=== PATIENT | female | born 1980 | race Caucasian/White ===

== ENCOUNTER 2018-01-19 20:58 | Emergency (ER) | payer MEDICARE, OTHER ==
[~2018-01-19] VITALS: Ht 170.2 cm; Wt 86.8 kg
[~2018-01-19 20:58] MED LIST: CEPH500C5 PO; HYDR-565 PO; HYDR-569 PO; ONDA4TAB59 PO; PHEN-873 PO
[2018-01-19] MEDS ORDERED: CEPH500C5 PO (22:36)
[2018-01-19 23:18] VITALS: BP 124/73
== END 2018-01-19 23:20 | disposition home or self-care (01) ==
LOC: ER 20:59
DX: S70.362A Insect bite (nonvenomous), left thigh, initial encounter (principal); E05.90 Thyrotoxicosis, unspecified without thyrotoxic crisis or storm; F12.10 Cannabis abuse, uncomplicated; F15.10 Other stimulant abuse, uncomplicated; F14.10 Cocaine abuse, uncomplicated; F11.10 Opioid abuse, uncomplicated; W57.XXXA Bitten or stung by nonvenomous insect and other nonvenomous arthropods, initial encounter; Y93.89 Activity, other specified; Y92.89 Other specified places as the place of occurrence of the external cause; Y99.9 Unspecified external cause status
CPT/HCPCS: 99283

== ENCOUNTER 2018-05-29 11:41 | Emergency (ER) | payer MEDICARE, OTHER ==
[~2018-05-29] VITALS: Ht 170.2 cm; Wt 86.0 kg
[2018-05-29 11:47] VITALS: BP 118/78
[2018-05-29] MEDS ORDERED: CEPH-571 PO (11:56)
== END 2018-05-29 12:15 | disposition home or self-care (01) ==
LOC: ER 11:41
DX: L03.116 Cellulitis of left lower limb (principal); E05.90 Thyrotoxicosis, unspecified without thyrotoxic crisis or storm; F12.90 Cannabis use, unspecified, uncomplicated; F15.90 Other stimulant use, unspecified, uncomplicated; F14.90 Cocaine use, unspecified, uncomplicated; F11.90 Opioid use, unspecified, uncomplicated; Z79.899 Other long term (current) drug therapy
CPT/HCPCS: 99284

== ENCOUNTER 2019-09-19 08:48 | Emergency (ER) | payer MEDICARE ==
[~2019-09-19] VITALS: Ht 170.2 cm; Wt 90.0 kg
[~2019-09-19 08:48] MED LIST changes: +CEPH-571 PO; -CEPH500C5 PO; +HYDR-4353 PO; +HYDR-4383 PO; -HYDR-565 PO; -HYDR-569 PO; +PHEN-786 PO; -PHEN-873 PO
[2019-09-19 09:05] VITALS: BP 128/85
[2019-09-19] MEDS ORDERED: ACET-3068 PO (10:01)
[2019-09-19] MEDS ORDERED: CLIN-90 PO (10:01)
[2019-09-19] MEDS ORDERED: clindamycin 150mg capsule PO ONE (10:20)
== END 2019-09-19 10:31 | disposition home or self-care (01) ==
LOC: ER 08:49
DX: K04.7 Periapical abscess without sinus (principal); G89.29 Other chronic pain; F12.90 Cannabis use, unspecified, uncomplicated; F15.90 Other stimulant use, unspecified, uncomplicated; F14.90 Cocaine use, unspecified, uncomplicated; F11.90 Opioid use, unspecified, uncomplicated; E05.90 Thyrotoxicosis, unspecified without thyrotoxic crisis or storm; F17.200 Nicotine dependence, unspecified, uncomplicated
CPT/HCPCS: 99283

== ENCOUNTER 2019-09-23 17:04 | Emergency (ER) | payer MEDICARE, MEDICAID ==
[~2019-09-23] VITALS: Ht 170.2 cm; Wt 85.0 kg
[~2019-09-23 17:04] MED LIST changes: +CLIN-90 PO
[2019-09-23 17:20] VITALS: BP 118/86
== END 2019-09-23 17:43 | disposition home or self-care (01) ==
LOC: ER 17:04
DX: K08.89 Other specified disorders of teeth and supporting structures (principal); E03.9 Hypothyroidism, unspecified; F41.9 Anxiety disorder, unspecified; F12.90 Cannabis use, unspecified, uncomplicated; F15.90 Other stimulant use, unspecified, uncomplicated; F14.90 Cocaine use, unspecified, uncomplicated; F11.90 Opioid use, unspecified, uncomplicated; F10.99 Alcohol use, unspecified with unspecified alcohol-induced disorder; Z79.899 Other long term (current) drug therapy; Y90.9 Presence of alcohol in blood, level not specified
CPT/HCPCS: 99281

== ENCOUNTER 2021-01-12 16:11 | Emergency (ER) | payer MEDICARE, MEDICAID ==
[~2021-01-12] VITALS: Ht 170.2 cm; Wt 92.4 kg
[~2021-01-12 16:11] MED LIST changes: -CLIN-90 PO; +CLIN-97 PO
[2021-01-12 16:21] VITALS: BP 92/69
== END 2021-01-12 17:20 | disposition left against medical advice (07) ==
LOC: ER 16:12
DX: R00.1 Bradycardia, unspecified (principal); Z53.21 Procedure and treatment not carried out due to patient leaving prior to being seen by health care provider
CPT/HCPCS: 93005